=== PATIENT | male | born 1960 | race Caucasian/White ===

== ENCOUNTER 2024-03-05 09:56 | Observation (INO) ==
[~2024-03-05 09:56] MED LIST: BUPIVACAINE **LIPOSOME/PF 13.3 MG/ML (266MG/ 20ML) VIAL (RESTRICTED) INFIL SCH
[2024-03-05] MEDS ORDERED: Scopolamine 1 mg/72hr PATCH ONE (10:08)
[2024-03-05] MEDS ORDERED: ceFAZolin 2 GM PREMIX 2 GM/50 ML BAG ONE (10:09)
[2024-03-05 10:30] LABS: Rapid COVID-19 Molecular Undetected (Undetected)
[2024-03-05] MEDS ORDERED: fentaNYL 250 mcg/5 ml 50 MCG/ML 5 ml VIAL (250 MCG) ONE (11:21)
[2024-03-05] MEDS ORDERED: Propofol 10 MG/ML 20 ML BTL ONE (11:21)
[2024-03-05] MEDS ORDERED: Rocuronium 50 mg VIAL 10 mg/ml 5 ml VIAL (50 mg) ONE ×4 (11:21→15:15)
[2024-03-05] MEDS ORDERED: Lidocaine 2% PF 5 ML VIAL ONE (11:21)
[2024-03-05] MEDS ORDERED: Midazolam 2 mg/2 ml VIAL 1 mg/ml 2 ml VIAL (2 mg) ONE (11:21)
[2024-03-05] MEDS ORDERED: Ondansetron 4 mg VIAL 2 MG/ML 2 ml VIAL IV PRN (11:53)
[2024-03-05] MEDS ORDERED: Bupivacaine 0.25% SDV PF 10 ML VIAL INJ ONE ×2 (12:51→12:59)
[2024-03-05] MEDS ORDERED: HYDROmorphone 0.5 MG/0.5 ML SYRINGE ONE (14:49)
[2024-03-05] MEDS ORDERED: Dexamethasone IV 4 MG/ML VIAL 1 ml VIAL ONE (15:08)
[2024-03-05] MEDS ORDERED: Ondansetron 4 mg VIAL 2 MG/ML 2 ml VIAL ONE (15:08)
[2024-03-05] MEDS ORDERED: Sevoflurane BOTTLE ONE (15:08)
[2024-03-05] MEDS ORDERED: Succinylcholine 200 mg VIAL 20 mg/ml 10 ml VIAL (200 mg) ONE (15:08)
[2024-03-05] MEDS: Scopolamine 1 mg/72hr PATCH TRANSDERM ONE (17:54)
[2024-03-05] MEDS: Buffered Lidocaine 1% SYRIN 1 ml INTRADERM ONE (17:54)
[2024-03-05] MEDS: Lactated Ringers 1000 ml BAG 1,000 ML IV SCH (17:55)
[2024-03-05] MEDS: Neomycin/Polym/Bacit TOP OINT 15 GM TOPICAL SCH (17:55)
[2024-03-05] MEDS: NS 0.9% 1000 ml BAG 1,000 ML IV SCH (18:26)
[2024-03-05 19:12] LABS: ABS Lymphocytes 0.2 10^3/uL (1.0-4.8); ABS Monocytes 0.3 10^3/uL (0.0-1.1); ABS Neutrophils 11.2 10^3/uL (1.5-7.6); Hematocrit 42.8 % (38-53); Hemoglobin 14.3 g/dL (13.2-16.3); Mean Corpuscular Hemoglobin 30.2 pg (27-33); Mean Corpuscular Hgb Conc 33.4 g/dL (31-36); Mean Corpuscular Volume 90.5 fL (80-97); Mean Platelet Volume 7.3 fL (7.5-11.2); Platelet Count 223 10^3/uL (150-450); Red Blood Count 4.73 10^6/uL (4.06-5.63); Red Cell Distribution Width 12.9 % (12-17); White Blood Count 11.8 10^3/uL (3.6-10.2)
[2024-03-05 19:43] LABS: Calcium 8.4 mg/dL (8.6-10.3); Creatinine, Serum 1.1 mg/dL (0.67-1.17); Potassium 4.4 mmol/L (3.5-5.0)
[2024-03-06] MEDS: Magnesium Hydroxide LIQ 30 ML UDC PO SCH (00:45)
[2024-03-06 05:44] VITALS: BP 115/82
== END 2024-03-06 10:10 | disposition home or self-care (01) ==
LOC: INTOOBSV 09:56 → AA 09:56 → SSU 11:54
PROVIDERS: ADMIT Urology; ATTEND Urology